=== PATIENT | female | born 1950 | race Caucasian/White ===

== ENCOUNTER → 2017-04-02 | Outpatient (CLI) | payer BC | LOC: MAMO 10:18 | DX: Z12.31 Encounter for screening mammogram for malignant neoplasm of breast (principal); Z90.710 Acquired absence of both cervix and uterus | CPT/HCPCS: G0202 ==

== ENCOUNTER → 2021-07-12 | Outpatient (CLI) | payer BC | LOC: KOH-I 11:03 | DX: R55 Syncope and collapse (principal); R47.1 Dysarthria and anarthria; R41.840 Attention and concentration deficit; R41.89 Other symptoms and signs involving cognitive functions and awareness | CPT/HCPCS: 70551 ==

== ENCOUNTER → 2021-12-29 | Outpatient (CLI) | payer BC | LOC: MAMO 12-23 10:30 | DX: Z12.31 Encounter for screening mammogram for malignant neoplasm of breast (principal) | CPT/HCPCS: 77063; 77067 ==